=== PATIENT | female | born 1985 | race Caucasian/White ===

== ENCOUNTER 2018-07-18 16:08 | Emergency (ER) | payer MEDICAID ==
[~2018-07-18] VITALS: Ht 172.7 cm; Wt 68.2 kg
[2018-07-18 16:21] VITALS: BP 133/56
[2018-07-18] MEDS ORDERED: normal saline 1000ML IV soln IV ONE (16:40)
[2018-07-18 17:29] LABS: BASOPHILS # (AUTO) 0.1 X10'3 (0-0.2); BASOPHILS % (AUTO) 0.5 % (0-1); EOSINOPHILS # (AUTO) 0.2 X10'3 (0-0.9); EOSINOPHILS % (AUTO) 1.6 % (0-6); HEMATOCRIT 39.9 % (35.0-45.0); HEMOGLOBIN 13.5 g/dl (12.0-16.0); LYMPHOCYTES # (AUTO) 3.3 X10'3 (1.1-4.8); MEAN CORPUSCULAR HGB CONC 33.7 % (33.0-36.5); MEAN PLATELET VOLUME 7.6 FL (7.4-10.4); MONOCYTES # (AUTO) 0.7 X10'3 (0-0.9); NEUTROPHILS % (AUTO) 67.9 % (42-75); PLATELET COUNT 331 X10'3 (140-440); RED BLOOD COUNT 4.64 X10'6 (4.20-5.60); RED CELL DISTRIBUTION WIDTH 13.6 % (11.5-14.5); WHITE BLOOD COUNT 13.2 X10'3 (4.5-11.0)
[2018-07-18 17:44] LABS: ALANINE AMINOTRANSFERASE 75 U/L (12-78); ALBUMIN 3.4 G/DL (3.4-5.0); ALBUMIN/GLOBULIN RATIO 0.9 (1.1-1.5); ALKALINE PHOSPHATASE 91 IU/L (46-116); ANION GAP 10 (8-16); ASPARTATE AMINO TRANSFERASE 41 U/L (10-37); BILIRUBIN,TOTAL 0.2 MG/DL (0.1-1.0); BLOOD UREA NITROGEN 9 MG/DL (7-18); BUN/CREATININE RATIO 14.5 (6.6-38.0); CHLORIDE 100 MMOL/L (99-107); CREATININE 0.62 MG/DL (0.40-0.90); GLUCOSE 90 MG/DL (70-104); PARTIAL THROMBOPLASTIN TIME 27 SECONDS (22-32); POTASSIUM 3.4 MMOL/L (3.5-5.1); PROTHROMBIN TIME 9.9 SECONDS (9.0-12.0); SODIUM 136 MMOL/L (135-145); TOTAL CARBON DIOXIDE 25.9 MMOL/L (24-32); TOTAL PROTEIN 7.2 G/DL (6.4-8.2); eGFR > 90 ML/MIN
[2018-07-18 18:06] LABS: BETA HCG,QUANTITATIVE 4017 mIU/ml
[2018-07-18] MEDS ORDERED: normal saline 1000ML IV soln IVB ONE (18:10)
[2018-07-18 18:18] LABS: CLARITY,URINE CLEAR (Clear); COLOR,URINE YELLOW (Yellow); GLUCOSE, URINE NEGATIVE (Neg); KETONES,URINE NEGATIVE (Neg); LEUKOCYTE ESTERASE ,URINE NEGATIVE (Neg); NITRITES, URINE NEGATIVE (Neg); OCCULT BLOOD,URINE NEGATIVE (Neg); PROTEIN,URINE NEGATIVE (Neg); UROBILINOGEN,URINE 0.2 E.U/dL (0.2-1.0)
[2018-07-18 18:19] LABS: UA COLLECTION TYPE NON-SPECIFIED
== END 2018-07-18 21:55 | disposition home or self-care (01) ==
LOC: ER 16:08
DX: O03.1 Delayed or excessive hemorrhage following incomplete spontaneous abortion (principal); F12.90 Cannabis use, unspecified, uncomplicated; F19.90 Other psychoactive substance use, unspecified, uncomplicated; F11.90 Opioid use, unspecified, uncomplicated; Z98.890 Other specified postprocedural states; Z88.5 Allergy status to narcotic agent; Z3A.21 21 weeks gestation of pregnancy
CPT/HCPCS: 36415; 76801; 80053; 81003; 84702; 85025; 85610; 85730; 99284; J7030

== ENCOUNTER 2018-09-30 18:49 | Emergency (ER) | payer MEDICAID ==
[~2018-09-30] VITALS: Ht 172.7 cm; Wt 55.0 kg
[2018-09-30] MEDS ORDERED: ondansetron/PF 4mg/2ml inj IV ONE (19:20)
[2018-09-30] MEDS ORDERED: normal saline 1000ML IV soln IVB ONE ×2 (19:20)
--- NOTE | 2018-09-30 20:23 | NUR ---
PT UP TO BATHROOM
[2018-09-30] MEDS ORDERED: buprenorphine/naloxone 8mg/2mg SL tablet SL PRN (20:25)
[2018-09-30 21:22] VITALS: BP 112/58
== END 2018-09-30 21:24 | disposition left against medical advice (07) ==
LOC: EEVIPCON 18:49 → ER 18:49
DX: O99.321 Drug use complicating pregnancy, first trimester (principal); F11.23 Opioid dependence with withdrawal; F12.90 Cannabis use, unspecified, uncomplicated; O99.331 Smoking (tobacco) complicating pregnancy, first trimester; F17.200 Nicotine dependence, unspecified, uncomplicated; O26.891 Other specified pregnancy related conditions, first trimester; M06.9 Rheumatoid arthritis, unspecified; Z3A.09 9 weeks gestation of pregnancy; Z88.5 Allergy status to narcotic agent
CPT/HCPCS: 36415; 84702; 96374; 99283; J2405; J7030